=== PATIENT | female | born 1940 | race Caucasian/White ===

== ENCOUNTER 2016-09-12 14:41 | Emergency (ER) | payer OTHER ==
[~2016-09-12] VITALS: Ht 167.6 cm; Wt 103.0 kg
[2016-09-12] MEDS ORDERED: NAPROSYN500 MG PO (16:57)
[2016-09-12 17:26] VITALS: BP 128/76
== END 2016-09-12 17:27 | disposition home or self-care (01) ==
LOC: EME 14:41
DX: M71.22 Synovial cyst of popliteal space [Baker], left knee (principal)
CPT/HCPCS: 93971; 99281; 99283